=== PATIENT | male | born 2000 | race Native Hawaiian/Other Pacific Islander ===

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

== ENCOUNTER 2022-10-23 16:19 | Emergency (ER) | payer OTHER ==
[~2022-10-23] VITALS: Ht 170.2 cm; Wt 63.5 kg
[2022-10-23 17:53] VITALS: BP 126/68; TEMP 98
== END 2022-10-23 17:53 | disposition home or self-care (01) ==
LOC: ED 16:19
PROC: 2W3JX1Z Immobilization of Right Finger using Splint (ICD-10-PCS; principal; 2022-10-23)
DX: S69.91XA Unspecified injury of right wrist, hand and finger(s), initial encounter (principal); S61.302A Unspecified open wound of right middle finger with damage to nail, initial encounter; X58.XXXA Exposure to other specified factors, initial encounter
CPT/HCPCS: 90471; 90715; 96372; 99283; J1885